=== PATIENT | female | born 2000 | race Caucasian/White ===

== ENCOUNTER 2024-05-24 09:47 | Emergency (ER) | payer OTHER ==
[~2024-05-24] VITALS: Ht 162.6 cm; Wt 78.9 kg
[~2024-05-24 09:47] MED LIST: CLIN150 PO
[2024-05-24] MEDS ORDERED: NS 1,000 ML IV SCH (10:10)
[2024-05-24 10:53] LABS: BASOPHILS ABSOLUTE AUTO 0.03 K/mm3 (0.00-0.23); BASOPHILS PERCENT AUTO 1 % (0-2); EOSINOPHILS ABSOLUTE AUTO 0.04 K/mm3 (0.00-0.68); EOSINOPHILS PERCENT AUTO 1 % (0-6); Hematocrit 36.7 % (33.0-51.0); Hemoglobin 12.1 g/dL (11.5-16.0); IMMATURE GRAN ABSOLUTE AUTO 0.02 K/mm3 (0.00-0.10); IMMATURE GRAN PERCENT AUTO 0 % (0-1); LYMPHOCYTES ABSOLUTE AUTO 0.86 K/mm3 (0.84-5.20); LYMPHOCYTES PERCENT AUTO 15 % (21-46); MONOCYTES ABSOLUTE AUTO 0.23 K/mm3 (0.16-1.47); MONOCYTES PERCENT AUTO 4 % (4-13); Mean Corpuscular HGB 24.2 pg (26.0-34.0); Mean Corpuscular Volume 73 fL (80-100); Mean Platelet Volume 10.9 fL (9.1-12.4); NEUTROPHILS ABSOLUTE AUTO 4.43 K/mm3 (1.96-9.15); NEUTROPHILS PERCENT AUTO 79 % (41-73); Platelet Count 297 K/mm3 (150-400); RDW Coefficient Variation 18.3 % (11.7-14.2); RDW Standard Deviation 48.1 fL (35.1-46.3); White Blood Cell Count 5.61 K/mm3 (4.00-11.30)
[2024-05-24 11:25] LABS: Alanine Aminotransfer (ALT/SGP 40 U/L (12-78); Albumin, Blood 4.4 g/dL (3.4-5.0); Albumin/Globulin Ratio 1.1 (0.8-1.8); Alk Phos 79 U/L (50-136); Anion Gap 12 mmol/L (3-11); Aspartate Aminotrans (AST/SGOT 31 U/L (12-37); Beta HCG, Quantitative, Serum <1 mIU/mL (0-3); Bilirubin, Total 0.7 mg/dL (0.1-1.0); Blood Urea Nitrogen 16 mg/dL (8-24); Bun/Creatinine Ratio 22.3 (12.0-20.0); CO2, Blood 24 mmol/L (21-32); Calcium, Blood 9.3 mg/dL (8.5-10.1); Chloride, Blood 105 mmol/L (98-108); Creatinine, Blood 0.72 mg/dL (0.40-1.00); Globulin, Blood 3.9 g/dL (2.2-4.0); Glomerular Filtration Rate 119 (60-); Glucose, Blood 124 mg/dL (70-99); Potassium, Blood 2.9 mmol/L (3.5-5.5); Sodium, Blood 138 mmol/L (136-145); Total Protein, Blood 8.3 g/dL (6.4-8.2)
[2024-05-24] MEDS ORDERED: Haloperidol Lactate Inj. 5 MG/ML Injection IV ONE (11:30)
[2024-05-24] MEDS ORDERED: D5W-LR 1,000 ML IV SCH (11:30)
[2024-05-24] MEDS ORDERED: DiphenhydrAMINE HCl 50 MG/ML 1ML Vial IV ONE (11:30)
[2024-05-24] MEDS ORDERED: Potassium Chloride 20 MEQ TabCR PO ONE (11:35)
[2024-05-24 11:43] LABS: Influenza A, PCR NEGATIVE (NEGATIVE); Influenza B, PCR NEGATIVE (NEGATIVE); Resp Syncytial Virus, PCR NEGATIVE (NEGATIVE); SARS-Cov-2 (COVID-19) PCR, MMC NEGATIVE (NEGATIVE)
[2024-05-24 11:55] LABS: Source, Urine Clean Catch
[2024-05-24 12:04] LABS: Appearance, Urine Hazy (Clear); Bilirubin, Urine Neg (Neg); Blood, Urine 5+ (Neg); Color, Urine Yellow (P-Yellow); Glucose Qualitative, Urine Neg (Neg); Ketones, Urine 4+ (Neg); Leukocyte Esterase, Urine 1+ (Neg); Nitrite, Urine Neg (Neg); Protein, Urine 2+ (Neg); Specific Gravity, Urine 1.015 (1.003-1.022); Urobilinogen, Urine 1+ (Normal)
[2024-05-24 12:40] LABS: Squamous Epithelial Cells Many /hpf (Few)
[2024-05-24 12:41] LABS: Amorphous Mod (0-Heavy); Bacteria Mod /hpf; Mucus Heavy (0-Heavy)
[2024-05-24] MEDS ORDERED: CORTISONE60 GM TOP (13:20)
[2024-05-24 14:22] VITALS: BP 121/94
== END 2024-05-24 14:13 | disposition home or self-care (01) ==
LOC: ER 09:47
PROVIDERS: Student in an Organized Health Care Education/Training Program
DX: R11.2 Nausea with vomiting, unspecified (principal); E86.0 Dehydration; F17.200 Nicotine dependence, unspecified, uncomplicated; Z88.0 Allergy status to penicillin
CPT/HCPCS: 0241U; 76705; 80053; 81001; 83690; 84702; 85025; 87086; 96360; 96361; 99284-25; A9270; J7030; J7121

== ENCOUNTER 2024-05-28 21:41 | Emergency (ER) | payer OTHER ==
[~2024-05-28] VITALS: Ht 162.6 cm; Wt 79.4 kg
[~2024-05-28 21:41] MED LIST changes: +CORTISONE60 GM TOP
[2024-05-28 21:45] VITALS: BP 137/86
[2024-05-28] MEDS ORDERED: Triamcinolone Acet 0.1% Ointment 15 GM TOP ONE (23:50)
[2024-05-28] MEDS ORDERED: HyDROXyzine HCl 25 MG Tab PO ONE (23:50)
[2024-05-28] MEDS ORDERED: HYDHCL25 PO (23:56)
== END 2024-05-29 00:08 | disposition home or self-care (01) ==
LOC: ER 21:41
DX: L50.9 Urticaria, unspecified (principal); F17.200 Nicotine dependence, unspecified, uncomplicated; Z91.030 Bee allergy status; Z88.0 Allergy status to penicillin; Z79.899 Other long term (current) drug therapy
CPT/HCPCS: 99282; A9270

== ENCOUNTER 2024-09-03 18:47 | Emergency (ER) | payer OTHER ==
[~2024-09-03] VITALS: Ht 162.6 cm; Wt 74.8 kg
[~2024-09-03 18:47] MED LIST changes: +HYDHCL25 PO; +ONDA4ODT MM
[2024-09-03 19:16] VITALS: BP 99/77
[2024-09-03] MEDS ORDERED: HYDROcodone 5-APAP 325 TAB PO ONE (20:15)
[2024-09-03] MEDS ORDERED: Ketorolac Tromethamine 15mg Vial IM ONE (20:15)
== END 2024-09-03 20:35 | disposition home or self-care (01) ==
LOC: ER 18:47
DX: L55.1 Sunburn of second degree (principal); F17.200 Nicotine dependence, unspecified, uncomplicated; Z88.0 Allergy status to penicillin; Z91.013 Allergy to seafood; Z91.030 Bee allergy status; Z79.899 Other long term (current) drug therapy
CPT/HCPCS: 96372; 99282-25; A9270; J1885